=== PATIENT | female | born 1970 | race Caucasian/White ===

== ENCOUNTER → 2016-07-17 | Outpatient (CLI) | payer OTHER ==
[~2016-07-17] MED LIST: AMITRIPTYLINE H10 MG PO; NAPROSYN375 MG PO; PROZAC10 MG PO; SUMATRIPTAN SU100 MG PO
== END | disposition home or self-care (01) ==
LOC: CDC 12:59
DX: I49.9 Cardiac arrhythmia, unspecified (principal); M79.662 Pain in left lower leg
CPT/HCPCS: 93000